=== PATIENT | female | born 1950 | race Caucasian/White ===

== ENCOUNTER 2017-02-17 09:34 | Emergency (ER) | payer BC, MEDICARE ==
[2017-02-17] MEDS ORDERED: HYDROmorphone 1 MG/ML SYRINGE IVP STA (11:32)
[2017-02-17] MEDS ORDERED: HYDROmorphone 1 MG/ML SYRINGE ONE (11:59)
[2017-02-17] MEDS ORDERED: IOPAMIDOL-300 100 ML VIAL IVP ONE (12:20)
== END 2017-02-17 14:22 | disposition home or self-care (01) ==
DX: R10.11 Right upper quadrant pain (principal); Z93.3 Colostomy status; G35 Multiple sclerosis; Z79.82 Long term (current) use of aspirin; F17.200 Nicotine dependence, unspecified, uncomplicated
CPT/HCPCS: 36415; 74177; 80053; 81003; 83690; 85025; 96374; 99283; 99284; J1170; Q9967

== ENCOUNTER 2017-04-12 12:50 | Outpatient (CLI) | payer BC, MEDICARE ==
--- NOTE | 2017-04-12 14:14 | XRAY Report ---
LEFT FOOT, THREE VIEWS: 04/12/2017 CLINICAL INDICATION: Lateral foot pain. FINDINGS: No fracture is seen. No bone lesion is noted. No significant osteoarthritic change is detected. There is mild suggestion of osteoporosis present in the metatarsal heads and in the toes of the left foot. IMPRESSION: MILD OSTEOPOROSIS WITHOUT FRACTURE. MTDD
== END 2017-04-12 12:51 | disposition home or self-care (01) ==
LOC: DI 12:50
PROVIDERS: ATTEND Family Medicine
DX: S99.922A Unspecified injury of left foot, initial encounter (principal); M81.0 Age-related osteoporosis without current pathological fracture

== ENCOUNTER 2017-06-22 14:16 | Outpatient (CLI) | payer BC, MEDICARE ==
--- NOTE | 2017-06-22 20:53 | MRI Report ---
EXAM: MRI LUMBAR SPINE WITHOUT CONTRAST EXAM DATE: 06/22/2017 03:06 PM. CLINICAL HISTORY: Lumbar spondylolisthesis. History of multiple sclerosis. COMPARISON: 10/11/2013, MRI, CT abdomen and pelvis 02/17/2017. TECHNIQUE: Multiplanar, multisequence T1-weighted and fluid-sensitive sequences of the lumbar spine f rom T12 to S1 without contrast. Other: None. FINDINGS: Spinal Cord: The conus terminates at L1-L2. No signal abnormality in the visualized spinal cord. Alignment: Grade 1 anterolisthesis of L4 on L5 measures 1 mm. It is new compared with the prior exami nation. Bone Marrow: Five [id number] lumbar vertebral bodies are assumed. No gross fractures or bone les ions. No bone marrow edema. Disk Levels/Facets: T11-T12: Unremarkable. T12-L1: Unremarkable. L1-L2: Unremarkable. L2-L3: Unremarkable. L3-L4: Unremarkable. L4-L5: The disk is desiccated. Moderate right facet osteoarthritis and mild ligamentum flavum hypertr ophy causes minimal spinal canal narrowing. A moderate right facet effusion is present. L5-S1: The disk is desiccated. Musculature: Normal. No edema or fatty atrophy. Other: The visualized pelvic cavity is unremarkable. IMPRESSION: 1. Grade 1 anterolisthesis of L4 on L5, new. 2. Minimal spinal canal narrowing at L4-L5 due to posterior element degenerative changes. Comment: The following findings are so common in adults without low back pain that while we report th eir presence, they must be interpreted with caution and in the context of the clinical situation. (Re magdalena Spence et al, Spine 2001) Prevalence of findings in patients without low back pain: Disk degeneration (any evidence): 92% Disk desiccation/T2 signal loss: 83% Disk height loss: 56% Disk bulge: 64% Disk protrusion: 32% Annular tear/high intensity zone: 38% [facility] Referring Provider Line: [phone] SITE ID: [id number]
== END 2017-06-22 14:17 | disposition home or self-care (01) ==
LOC: DI 14:16
PROVIDERS: ATTEND Orthopaedic Surgery
DX: M47.896 Other spondylosis, lumbar region (principal); M51.36 Other intervertebral disc degeneration, lumbar region; M51.37 Other intervertebral disc degeneration, lumbosacral region; M43.16 Spondylolisthesis, lumbar region
CPT/HCPCS: 72148

== ENCOUNTER 2017-10-22 17:12 | Emergency (ER) | payer BC, MEDICARE ==
--- NOTE | 2017-10-22 18:07 | ED Physician Documentation ---
PD HPI LOWER EXT INJURY - Stated complaint Stated Complaint: L LE PAIN - Chief complaint Chief Complaint: General - History obtained from History obtained from: Patient - History of Present Illness PD HPI LOW EXT INJURY LOCATION: Left, Lower leg, Ankle Type of injury: Twist (not significant injury and pain is worsening for 3 days in foot/ankle. Concerned about blood clot.) Timing - onset: How many days ago (3) Timing - duration: Days Timing - details: Gradual onset, Still present Improved by: Rest Worsened by: Moving, Palpating Associated symptoms: Weakness, Swelling. No: Numbness, Discolored Similar symptoms before: Has not had sx before Recently seen: Not recently seen Review of Systems Constitutional: denies: Fever, Chills Cardiac: denies: Chest pain / pressure, Palpitations Respiratory: denies: Dyspnea, Cough GI: denies: Vomiting, Diarrhea Skin: denies: Rash, Lesions Musculoskeletal: denies: Neck pain, Back pain Neurologic: reports: Numbness. 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 - Present Medications Home Medications: Ambulatory Orders Medication Instructions Recorded Confirmed Aspirin [Aspir-Low] 81 mg PO DAILY 02/17/17 02/17/17 Dicyclomine [Bentyl] 10 mg PO Q8H PRN #20 capsule 02/17/17 Tramadol HCl 1 - 2 tab PO QID PRN 02/17/17 02/17/17 Naproxen 375 mg PO BID #20 tablet 10/22/17 Oxycodone HCl/Acetaminophen 1 each PO Q6H PRN #15 tablet 10/22/17 [Percocet 5-325 mg Tablet] - Allergies Allergies/Adverse Reactions: Allergies Allergy/AdvReac Type Severity Reaction Status Date / Time cephalexin monohydrate * Allergy Nausea Verified 10/22/17 19:27 [From Keflex] - Social History Does the pt smoke?: Yes Smoking Status: Current every day smoker Does the pt drink ETOH?: No Does the pt have substance abuse?: No - Family History Family history: reports: Venous thromboembolism - Immunizations Immunizations are current?: Yes PD ED PE NORMAL - Vitals Vital signs reviewed: Yes - General General: Alert and oriented X 3, No acute distress, Well developed/nourished - Neck Neck: Supple, no meningeal sign, No adenopathy - Cardiac Cardiac: RRR, No murmur - Respiratory Respiratory: Clear bilaterally - Abdomen Abdomen: Soft, Non tender - Back Back: No CVA TTP - Derm Derm: Normal color, Warm and dry - Extremities Extremities: No deformity, No tenderness to palpate, Other (left ankle and top of foot wiht aden tenderness, no redness nor warmth. Mild lower calf tenderness without pain on compression.) - Neuro Neuro: Alert and oriented X 3, bundle person 2-12 intact, No motor deficit, No sensory deficit, Normal speech, Other - Psych Psych: Normal mood, Normal affect Results - Vitals Vitals: Oxygen O2 Source Room air - Labs Labs: Laboratory Tests 10/22/17 10/22/17 18:39 18:39 WBC 8.5 RBC 5.33 Hgb 15.8 Hct 47.3 H MCV 88.7 MCH 29.5 MCHC 33.3 RDW 14.1 Plt Count 214 MPV 8.8 Neut # 4.9 Lymph # 2.9 [place] # 0.6 Eos # 0.1 Baso # 0.1 Absolute Nucleated RBC 0.00 Nucleated RBC % 0.0 ESR 5 - Rads (name of study) left ankle Radiology: Prelim report reviewed (no fractures) duplex leg Radiology: Prelim report reviewed (no DVT) PD MEDICAL DECISION MAKING - ED course Complexity details: reviewed results, considered differential, d/w patient Departure - Departure Disposition: 01 Home, Self Care Clinical Impression: Ankle pain, left Qualifiers: Chronicity: acute Qualified Code(s): M25.572 - Pain in left ankle and joints of left foot Sprained ankle Qualifiers: Encounter type: initial encounter Involved ligament of ankle: other ligament Laterality: left Qualified Code(s): S93.492A - Sprain of other ligament of left ankle, initial encounter Condition: Stable Record reviewed to determine appropriate education?: Yes Instructions: ED Sprain Ankle Follow-Up: Kevin Lopez MD [Primary Care Provider] - Prescriptions: Naproxen 375 mg PO BID #20 tablet Oxycodone HCl/Acetaminophen [Percocet 5-325 mg Tablet] 1 each PO Q6H PRN #15 tablet PRN Reason: Pain Comments: Your tests today exclude the diagnoses of DVT, inflammatory significant causes such as gout or rheumatoid, fractures, and unlikely infection. I presume its ligamentous or some arthritis of the ankle at this time. Recheck if not better over the next several days. Recheck if other symptoms develop along with it. Otherwise we will treated with an ankle brace, naproxen anti-inflammatory twice daily for 7-10 days and add Tylenol or Percocet if needed for pain. Follow-up with your primary care in about 3-5 days if not improved. Discharge Date/Time: 10/22/17 22:01
[2017-10-22] MEDS ORDERED: HYDROcod/ACETAM 5/325 MG TABLET PO STA (18:30)
[2017-10-22] MEDS ORDERED: HYDROcod/ACETAM 5/325 MG TABLET ONE (18:42)
[2017-10-22 18:57] LABS: BASOPHILS # (AUTO) 0.1 10^3/uL (0.0-0.1); EOSINOPHILS # (AUTO) 0.1 10^3/uL (0.0-0.7); EOSINOPHILS % (AUTO) 1.6 %; HCT - HEMATOCRIT 47.3 % (37.0-47.0); HGB - HEMOGLOBIN 15.8 g/dL (12.0-16.0); LYMPHOCYTES # (AUTO) 2.9 10^3/uL (1.5-3.5); LYMPHOCYTES % (AUTO) 33.7 %; MEAN CORPUSCULAR HEMOGLOBIN 29.5 pg (27.0-31.0); MEAN CORPUSCULAR HGB CONC 33.3 g/dL (32.0-36.0); MEAN CORPUSCULAR VOLUME 88.7 fL (81.0-99.0); MEAN PLATELET VOLUME 8.8 fL (7.9-10.8); MONOCYTES # (AUTO) 0.6 10^3/uL (0.0-1.0); MONOCYTES % (AUTO) 6.5 %; NEUTROPHILS # (AUTO) 4.9 10^3/uL (1.5-6.6); NEUTROPHILS % (AUTO) 57.2 %; RED BLOOD COUNT 5.33 10^6/uL (4.20-5.40); RED CELL DISTRIBUTION WIDTH 14.1 % (12.0-15.0); UNCORRECTED WHITE BLOOD COUNT 8.5 x10^3/uL; WHITE BLOOD COUNT 8.5 x10^3/uL (4.8-10.8)
--- NOTE | 2017-10-22 19:25 | XRAY Preliminary Report ---
Exam: XR ANKLE 3 VIEW LT IMPRESSION: Normal ankle radiography. [facility] SITE ID: [id number]
--- NOTE | 2017-10-22 19:28 | XRAY Report ---
EXAM: LEFT ANKLE RADIOGRAPHY EXAM DATE: 10/22/2017 06:56 PM. CLINICAL HISTORY: Left ankle pain and swelling with range of motion for 3 days. No injury. COMPARISON: None. TECHNIQUE: 3 views. FINDINGS: Bones: Normal. No fractures or bone lesions. Joints: Normal. No effusion. No subluxations. The ankle mortise is normally aligned. Soft Tissues: Normal. No soft tissue swelling. IMPRESSION: Normal ankle radiography. [facility] Referring Provider Line: [phone] SITE ID: [id number]
[2017-10-22] MEDS ORDERED: oxyCOD/ACETAMIN 5 MG/325 MG TABLET PO STA (20:22)
[2017-10-22] MEDS ORDERED: oxyCOD/ACETAMIN 5 MG/325 MG TABLET PO ONE (20:29)
--- NOTE | 2017-10-22 20:55 | Ultrasound Preliminary Report ---
Exam: US DUPLEX EXT VEINS LEFT IMPRESSION: No evidence for deep venous thrombosis. [facility] SITE ID: [id number]
--- NOTE | 2017-10-22 20:57 | Ultrasound Report ---
EXAM: LEFT LOWER EXTREMITY VENOUS ULTRASOUND EXAM DATE: 10/22/2017 08:10 PM. CLINICAL HISTORY: Left calf/foot pain for 3 days. COMPARISON: None. TECHNIQUE: Real-time sonographic vascular imaging was performed by the paint line operator through the lower extremity utilizing both color-flow and Doppler spectral analysis. Multiple international account representative static sirisha ges were saved for review. FINDINGS: Common Femoral Vein (CFV): Normal. CFV-GSV Junction: Normal. Profunda Femoral Vein (PFV): Normal. Femoral Vein (FV) Prox: Normal. Femoral Vein (FV) Mid: Normal. Femoral Vein (FV) Dist: Normal. Popliteal Vein: Normal. Posterior Tibial Veins: Normal. Peroneal Veins: Normal. IMPRESSION: No evidence for deep venous thrombosis. [facility] Referring Provider Line: [phone] SITE ID: [id number]
[2017-10-22] MEDS ORDERED: oxyCODONE/ACET 5/325 Prepack 4 PO STA (21:33)
[2017-10-22] MEDS ORDERED: NAPROXEN 250 MG TABLET PO STA (21:34)
[2017-10-22 21:56] VITALS: BP 120/60
[2017-10-22] MEDS ORDERED: NAPROXEN 250 MG TABLET PO ONE (21:57)
[2017-10-22] MEDS ORDERED: oxyCODONE/ACET 5/325 Prepack 4 PO ONE (21:57)
== END 2017-10-22 22:01 | disposition home or self-care (01) ==
LOC: ED 17:12
DX: M25.572 Pain in left ankle and joints of left foot (principal); S93.492A Sprain of other ligament of left ankle, initial encounter; X50.9XXA Other and unspecified overexertion or strenuous movements or postures, initial encounter; F17.200 Nicotine dependence, unspecified, uncomplicated; Z83.2 Family history of diseases of the blood and blood-forming organs and certain disorders involving the immune mechanism
CPT/HCPCS: 36415; 73610; 85025; 85651; 93971; 99283; 99284; A9270

== ENCOUNTER 2018-06-27 08:00 | Outpatient (CLI) | payer BC, MEDICARE | END 2018-06-27 08:01 | disposition home or self-care (01) | LOC: LAB.R 08:00 | PROVIDERS: ATTEND Specialist | DX: K29.80 Duodenitis without bleeding (principal) | CPT/HCPCS: 87045; 87046; 87177; 87209; 87493 ==

== ENCOUNTER 2019-04-05 11:31 | Outpatient (CLI) | payer BC, MEDICARE ==
--- NOTE | 2019-04-05 14:17 | XRAY Report ---
Reason: PAIN IN RIGHT HIP, M25.551 Procedure Date: 04/05/2019 Accession Number: [id number] / [id number] Procedure: XR - Hip w/Pelvis 2-3V RT CPT Code: FULL RESULT: EXAM: RIGHT HIP RADIOGRAPHY EXAM DATE: 04/05/2019 11:56 AM. CLINICAL HISTORY: Pain in right hip, M25. 551. COMPARISON: None. TECHNIQUE: 2 views. FINDINGS: Bones: Normal. No fractures or bone lesion. Joints: Normal. No dislocation. The hip joint space is preserved. Soft Tissues: Normal. No soft tissue swelling. IMPRESSION: Normal hip radiography. [facility]
== END 2019-04-05 11:32 | disposition home or self-care (01) ==
LOC: DI 11:31
PROVIDERS: ATTEND Family Medicine
DX: M25.551 Pain in right hip (principal)